=== PATIENT | male | born 1985 | race Caucasian/White ===

== ENCOUNTER 2023-12-04 17:35 | Emergency (ER) | payer MEDICAID ==
[~2023-12-04] VITALS: Ht 170.2 cm; Wt 79.5 kg
[2023-12-04 18:27] LABS: BASOPHILS % (AUTO) 0.5 % (0-1); EOSINOPHILS # (AUTO) 0.2 X10'3 (0-0.9); EOSINOPHILS % (AUTO) 3.2 % (0-6); HEMATOCRIT 45.8 % (42.0-52.0); HEMOGLOBIN 16.2 g/dl (14.0-17.9); LYMPHOCYTES # (AUTO) 1.4 X10'3 (1.1-4.8); LYMPHOCYTES % (AUTO) 20.2 % (21-51); MEAN CORPUSCULAR HEMOGLOBIN 32.4 PG (27.0-31.0); MEAN CORPUSCULAR HGB CONC 35.4 g/dL (33.0-36.5); MEAN CORPUSCULAR VOLUME 91.7 FL (78-98); MEAN PLATELET VOLUME 8.3 FL (7.4-10.4); MONOCYTES # (AUTO) 0.4 X10'3 (0-0.9); MONOCYTES % (AUTO) 5.6 % (2-12); NEUTROPHILS % (AUTO) 70.5 % (42-75); PLATELET COUNT 235 X10'3 (140-440); RED BLOOD COUNT 4.99 X10'6 (4.70-6.10); WHITE BLOOD COUNT 7.1 X10'3 (4.5-11.0)
[2023-12-04 18:45] VITALS: BP 153/93; PULSE 108; TEMP 98.6; O2SAT 100
[2023-12-04 18:49] LABS: ALANINE AMINOTRANSFERASE 56 U/L (12-78); ALBUMIN 4.3 G/DL (3.4-5.0); ALBUMIN/GLOBULIN RATIO 1.2 (1.1-1.5); ALKALINE PHOSPHATASE 73 IU/L (46-116); ANION GAP 11 (8-16); ASPARTATE AMINO TRANSFERASE 37 U/L (10-37); BLOOD UREA NITROGEN 12 MG/DL (7-18); BUN/CREATININE RATIO 11.9 (10.0-20.0); CALCIUM 9.5 MG/DL (8.5-10.1); CHLORIDE 106 MMOL/L (99-107); CREATININE 1.01 MG/DL (0.60-1.10); GLUCOSE 95 MG/DL (70-104); LIPASE 37 U/L (16-77); POTASSIUM 3.5 MMOL/L (3.5-5.1); SODIUM 142 MMOL/L (135-145); TOTAL CARBON DIOXIDE 24.7 MMOL/L (24-32); TOTAL PROTEIN 7.9 G/DL (6.4-8.2); eCRCL 95 ML/MIN; eGFR 84 ML/MIN
[2023-12-04] MEDS: normal saline 1000ML IV soln IVB ONE ×2 (19:20→19:39)
[2023-12-04] MEDS: LORazepam 2 mg/ml vial IV ONE (19:37)
[2023-12-04] MEDS: metoclopramide 5 mg/ml inj IV ONE (19:38)
[2023-12-04] MEDS: diphenhydrAMINE 50 mg/ml inj IV ONE (19:38)
[2023-12-04 19:43] LABS: APTT 25 SECONDS (22-32); PROTHROMBIN TIME 10.9 SECONDS (9.0-12.0)
[2023-12-04] MEDS ORDERED: ondansetron 4mg rapidly disintigrating tab PO ONE (20:40)
[2023-12-04] MEDS: ketorolac trometh. 30mg/ml inj. IM ONE (20:51)
[2023-12-04] MEDS: diazepam inj 5 MG/ML inj. IM ONE (20:51)
[2023-12-04 20:56] VITALS: RESP 20
[2023-12-04] MEDS: proCHLORperazine 10 MG/2 ml inj IM ONE (21:05)
== END 2023-12-04 21:50 | disposition home or self-care (01) ==
LOC: ER 17:36
DX: K52.9 Noninfective gastroenteritis and colitis, unspecified (principal); R11.2 Nausea with vomiting, unspecified
CPT/HCPCS: 36415; 74176; 80053; 83605; 83690; 84145; 85025; 85610; 85730; 87040; 87077; 87186; 96361; 96372; 96374; 96375; 99285; J0780; J1200; J1885; J2060; J2765; J3360; J7030

== ENCOUNTER 2024-02-22 10:06 | Emergency (ER) | payer MEDICAID ==
[~2024-02-22] VITALS: Ht 172.7 cm; Wt 76.3 kg
[2024-02-22 11:17] LABS: BILIRUBIN,URINE NEGATIVE (Neg); CLARITY,URINE CLEAR (Clear); COLOR,URINE YELLOW (Yellow); GLUCOSE, URINE NEGATIVE (Neg); KETONES,URINE TRACE mg/dl (Neg); LEUKOCYTE ESTERASE ,URINE NEGATIVE (Neg); NITRITES, URINE NEGATIVE (Neg); OCCULT BLOOD,URINE NEGATIVE (Neg); PROTEIN,URINE NEGATIVE (Neg); UROBILINOGEN,URINE 0.2 E.U/dL (0.2-1.0)
[2024-02-22 11:20] LABS: UA COLLECTION TYPE CLN CATCH MIDSTREAM
[2024-02-22 12:11] VITALS: BP 114/78; PULSE 74; RESP 16; TEMP 98.1; O2SAT 97
== END 2024-02-22 12:12 | disposition home or self-care (01) ==
LOC: ER 10:06
DX: R10.2 Pelvic and perineal pain (principal); K59.00 Constipation, unspecified
CPT/HCPCS: 81003; 99284

== ENCOUNTER 2024-07-16 10:48 | Emergency (ER) | payer MEDICAID ==
[~2024-07-16] VITALS: Ht 170.2 cm; Wt 84.0 kg
[2024-07-16] MEDS: normal saline 1000ML IV soln IVB ONE (11:12)
[2024-07-16] MEDS: diphenhydrAMINE 50 mg/ml inj IV ONE (11:14)
[2024-07-16] MEDS: ketorolac trometh 15mg/ml vial 15 MG/ML ML IV ONE (11:15)
[2024-07-16 11:16] LABS: BASOPHILS # (AUTO) 0.1 X10'3 (0-0.2); BASOPHILS % (AUTO) 0.9 % (0-1); EOSINOPHILS # (AUTO) 0.3 X10'3 (0-0.9); EOSINOPHILS % (AUTO) 3.8 % (0-6); HEMATOCRIT 51.6 % (42.0-52.0); LYMPHOCYTES # (AUTO) 2.4 X10'3 (1.1-4.8); LYMPHOCYTES % (AUTO) 32.9 % (21-51); MEAN CORPUSCULAR HEMOGLOBIN 32.2 PG (27.0-31.0); MEAN CORPUSCULAR VOLUME 92.1 FL (78-98); MEAN PLATELET VOLUME 7.5 FL (7.4-10.4); MONOCYTES # (AUTO) 0.5 X10'3 (0-0.9); MONOCYTES % (AUTO) 6.4 % (2-12); PLATELET COUNT 304 X10'3 (140-440); RED CELL DISTRIBUTION WIDTH 12.9 % (11.5-14.5); WHITE BLOOD COUNT 7.2 X10'3 (4.5-11.0)
[2024-07-16] MEDS: morphine 2 MG/ML inj. syringe IV PRN (11:16)
[2024-07-16] MEDS: proCHLORperazine 10 MG/2 ml inj IV ONE (11:16)
[2024-07-16 11:35] LABS: ALANINE AMINOTRANSFERASE 69 U/L (12-78); ALBUMIN 4.4 G/DL (3.4-5.0); ALBUMIN/GLOBULIN RATIO 1.3 (1.1-1.5); ALKALINE PHOSPHATASE 100 IU/L (46-116); ANION GAP 6 (8-16); ASPARTATE AMINO TRANSFERASE 32 U/L (10-37); BILIRUBIN,DIRECT 0.2 MG/DL (0-0.3); BILIRUBIN,TOTAL 1.2 MG/DL (0.1-1.0); BLOOD UREA NITROGEN 11 MG/DL (7-18); BUN/CREATININE RATIO 10.3 (10.0-20.0); CALCIUM 8.8 MG/DL (8.5-10.1); CHLORIDE 104 MMOL/L (99-107); CREATININE 1.07 MG/DL (0.60-1.10); GLUCOSE 133 MG/DL (70-104); LIPASE 21 U/L (16-77); POTASSIUM 3.5 MMOL/L (3.5-5.1); SODIUM 143 MMOL/L (135-145); TOTAL PROTEIN 7.9 G/DL (6.4-8.2); eCRCL 89 ML/MIN; eGFR 78 ML/MIN
[2024-07-16] MEDS ORDERED: iohexol 300mg/ml 100ml inj. ONE (11:43)
[2024-07-16] MEDS: HYDROmorphone 1 mg/ml syringe IV ONE (12:12)
[2024-07-16] MEDS ORDERED: NAPR-56 PO (12:31)
[2024-07-16] MEDS ORDERED: ONDA-245 PO (12:31)
[2024-07-16 12:36] VITALS: BP 132/90; PULSE 108; TEMP 98; O2SAT 98
[2024-07-16 12:41] VITALS: RESP 16
== END 2024-07-16 12:42 | disposition home or self-care (01) ==
LOC: ER 10:49
DX: K40.90 Unilateral inguinal hernia, without obstruction or gangrene, not specified as recurrent (principal); R10.31 Right lower quadrant pain; F11.20 Opioid dependence, uncomplicated; F17.200 Nicotine dependence, unspecified, uncomplicated; Z79.899 Other long term (current) drug therapy
CPT/HCPCS: 36415; 74177; 80048; 80076; 83690; 85025; 96361; 96374; 96375; 99285; J0780; J1171; J1200; J1885; J2270; J7030; Q9967